=== PATIENT | male | born 2000 | race Caucasian/White ===

== ENCOUNTER 2020-12-22 10:01 | Emergency (ER) | payer OTHER ==
[~2020-12-22] VITALS: Ht 175.3 cm; Wt 64.7 kg
[2020-12-22] MEDS ORDERED: BUSP5TA PO (10:14)
[2020-12-22] MEDS ORDERED: TRAZ1TAB10 PO (10:14)
[2020-12-22] MEDS ORDERED: FLUO1TAB3 PO (10:15)
[2020-12-22] MEDS ORDERED: KETOROLAC 30 MG/ML 1ML VIAL IV ONE (11:20)
[2020-12-22] MEDS ORDERED: NS 1,000 ML IV ONE (11:20)
[2020-12-22] MEDS ORDERED: ONDANSETRON 4MG/2ML VIAL IV ONE (11:20)
[2020-12-22] MEDS ORDERED: diphenhydrAMINE 50MG/ML VIAL (J1200) IV ONE (11:20)
[2020-12-22 11:41] LABS: BASO % 0.5 % (0.0-1.0); EOS # 0.1 10^3/uL (0.0-0.5); EOS % 1.6 % (0.0-3.0); HEMATOCRIT 46.2 % (42.0-52.0); HEMOGLOBIN 15.5 g/dl (13.5-17.5); LYMPH # 1.2 10^3/uL (1.5-5.0); LYMPH % 19.3 % (24.0-44.0); MEAN CORPUSCULAR HEMOGLOBIN 30.4 pg (27.0-33.0); MEAN CORPUSCULAR HGB CONC 33.5 g/dl (32.0-36.5); MEAN CORPUSCULAR VOLUME 90.6 fl (80.0-96.0); MONO # 0.4 10^3/uL (0.0-0.8); NEUTROPHILS # 4.4 10^3/uL (1.5-8.5); NEUTROPHILS % 71.8 % (36.0-66.0); PLATELET COUNT, AUTOMATED 201 10^3/uL (150-450); WHITE BLOOD COUNT 6.2 10^3/uL (4.0-10.0)
--- NOTE | 2020-12-22 12:00 | REP ---
INDICATION: new onset headache. COMPARISON: None. TECHNIQUE: Helical scanning is acquired. 5 mm axial images were reformatted. Coronal MPR images were generated. FINDINGS: Bone window settings demonstrate an intact bony calvarium. There is no evidence of skull fracture or incidental bony calvarial lesion. The visualized paranasal sinuses appear clear. No intraorbital abnormality is seen. On soft tissue window setting images; the lateral, third, and fourth ventricles are normal in size and position. Medina-white differentiation pattern is normal above and below the tentorium. There are is no evidence of intracranial hemorrhage. No mass, edema, infarction, or midline shift is seen. No extra-axial fluid collection is appreciated. IMPRESSION: Negative noncontrast head CT. <Electronically signed by Syed Tejada > 12/22/20 [id number]
[2020-12-22 12:07] LABS: ERYTHROCYTE SEDIMENTATION RATE 2 mm/hr (0-15)
[2020-12-22 12:11] LABS: BLOOD UREA NITROGEN 14 MG/DL (7-18); CALCIUM LEVEL 9.6 MG/DL (8.5-10.1); CARBON DIOXIDE LEVEL 28 MEQ/L (21-32); CHLORIDE LEVEL 108 MEQ/L (98-107); CK-MB VALUE MASS < 1.0 NG/ML (<3.6); CPK CREATINE PHOSPHOKINASE 85 U/L (39-308); CREATININE FOR GFR 1.04 MG/DL (0.70-1.30); FREE T4 1.05 NG/DL (0.76-1.46); GLOMERULAR FILTRATION RATE > 60.0 (>60); GLUCOSE, FASTING 93 MG/DL (70-100); MAGNESIUM LEVEL 2.2 MG/DL (1.8-2.4); MB/CK RELATIVE INDEX 1.18 (< OR =4); POTASSIUM SERUM 4.4 MEQ/L (3.5-5.1); SODIUM LEVEL 141 MEQ/L (136-145); THYROID STIMULATING HORMONE 0.732 uIU/ML (0.358-3.740); TROPONIN I < 0.02 NG/ML (< 0.10)
[2020-12-22 13:00] VITALS: BP 113/78
--- NOTE | 2020-12-22 20:55 | ECGEPIP ---
[facility] - ED Test Date: 2020-12-22 Pat Name: JOSE CRYSTAL Department: Room: - Gender: Male Meat Trimmer: JEFFERY : 2000 Requested By: RUTH MATUTE PA-C Order Number: [id number] Reading MD: Laz Stewart Measurements Intervals [place] Rate: 69 P: 77 NE: 120 QRS: 68 QRSD: 92 T: 58 QT: 352 QTc: 377 Interpretive Statements Normal sinus rhythm INCOMPLETE RIGHT BUNDLE BRANCH BLOCK POOR R WAVE PROGRESSION BENIGN EARLY REPOLARIZATION NO PRIORS FOR COMPARISON Electronically Signed on 12-22-2020 20:55:25 EDT by Laz Stewart
== END 2020-12-22 13:10 | disposition home or self-care (01) ==
LOC: M ED 10:01
DX: R51.9 Headache, unspecified (principal); R07.89 Other chest pain; F33.9 Major depressive disorder, recurrent, unspecified; F41.9 Anxiety disorder, unspecified; D75.A Glucose-6-phosphate dehydrogenase (G6PD) deficiency without anemia; Z79.899 Other long term (current) drug therapy; Z88.8 Allergy status to other drugs, medicaments and biological substances
CPT/HCPCS: 70450; 80048; 82550; 82553; 83735; 84439; 84443; 84484; 85025; 85652; 93005; 96361; 96374; 96375; 99284; J1200; J1885; J2405

== ENCOUNTER 2020-12-23 23:34 | Emergency (ER) | payer OTHER ==
[~2020-12-23] VITALS: Ht 177.8 cm; Wt 65.6 kg
[~2020-12-23 23:34] MED LIST: BUSP5TA PO; FLUO1TAB3 PO; TRAZ1TAB10 PO
[2020-12-24 00:20] LABS: BASO % 0.6 % (0.0-1.0); EOS # 0.1 10^3/uL (0.0-0.5); EOS % 1.9 % (0.0-3.0); HEMATOCRIT 40.5 % (42.0-52.0); LYMPH # 1.9 10^3/uL (1.5-5.0); LYMPH % 26.3 % (24.0-44.0); MEAN CORPUSCULAR HEMOGLOBIN 30.2 pg (27.0-33.0); MEAN CORPUSCULAR HGB CONC 33.3 g/dl (32.0-36.5); MEAN CORPUSCULAR VOLUME 90.6 fl (80.0-96.0); MONO # 0.5 10^3/uL (0.0-0.8); MONO % 6.6 % (2.0-8.0); NEUTROPHILS # 4.6 10^3/uL (1.5-8.5); NEUTROPHILS % 64.2 % (36.0-66.0); PLATELET COUNT, AUTOMATED 172 10^3/uL (150-450); RED BLOOD COUNT 4.47 10^6/uL (4.30-6.10); WHITE BLOOD COUNT 7.2 10^3/uL (4.0-10.0)
[2020-12-24 00:23] LABS: HEMOGLOBIN 13.5 g/dl (13.5-17.5)
[2020-12-24] MEDS ORDERED: CHARCOAL ACTIVATED LIQUID 25 GM/120 ML BTL PO ONE (00:30)
[2020-12-24 00:48] LABS: AMPHETAMINES LEVEL URINE NEGATIVE (NEGATIVE); BARBITURATES URINE NEGATIVE (NEGATIVE); BENZODIAZEPINES URINE NEGATIVE (NEGATIVE); CANNABINOIDS URINE NEGATIVE (NEGATIVE); COCAINE METABOLITE URINE NEGATIVE (NEGATIVE); METHADONE URINE NEGATIVE (NEGATIVE); OPIATES URINE NEGATIVE (NEGATIVE); PHENCYCLIDINE URINE NEGATIVE (NEGATIVE)
[2020-12-24 01:00] LABS: ACETAMINOPHEN LEVEL < 2.0 UG/ML (10.0-30.0); ALBUMIN 4.4 GM/DL (3.2-5.2); ALT/SGPT 18 U/L (12-78); BILIRUBIN,DIRECT 0.2 MG/DL (0.0-0.2); BILIRUBIN,TOTAL 0.6 MG/DL (0.2-1.0); BLOOD UREA NITROGEN 16 MG/DL (7-18); CALCIUM LEVEL 8.9 MG/DL (8.5-10.1); CARBON DIOXIDE LEVEL 27 MEQ/L (21-32); CHLORIDE LEVEL 109 MEQ/L (98-107); CPK CREATINE PHOSPHOKINASE 97 U/L (39-308); CREATININE FOR GFR 0.99 MG/DL (0.70-1.30); ETHYL ALCOHOL (ETHANOL) < 0.003 % (0.000-0.010); GLOMERULAR FILTRATION RATE > 60.0 (>60); GLUCOSE, FASTING 89 MG/DL (70-100); POTASSIUM SERUM 3.8 MEQ/L (3.5-5.1); SALICYLATE LEVEL < 1.7 MG/DL (5.0-30.0); SODIUM LEVEL 141 MEQ/L (136-145); TOTAL PROTEIN 7.3 GM/DL (6.4-8.2)
[2020-12-24] MEDS ORDERED: NS 1,000 ML IV SCH (02:05)
[2020-12-24 16:40] LABS: RSV AMPLIFICATION NEGATIVE (NEGATIVE)
--- NOTE | 2020-12-24 20:47 | ECGEPIP ---
[facility] - ED Test Date: 2020-12-24 Pat Name: JOSE CRYSTAL Department: Room: - Gender: Male Door Technician: BRANDI : 2000 Requested By: ARPITA Mayfield Order Number: [id number] Reading MD: Ale Esposito Measurements Intervals [place] Rate: 64 P: 75 CT: 132 QRS: 51 QRSD: 90 T: 43 QT: 368 QTc: 379 Interpretive Statements Normal sinus rhythm with sinus arrhythmia similar 12/22/20 Electronically Signed on 12-24-2020 20:46:59 EDT by Ale Esposito
--- NOTE | 2020-12-24 20:53 | ECGEPIP ---
[facility] - ED Test Date: 2020-12-24 Pat Name: JOSE CRYSTAL Department: Room: - Gender: Male Preventive Maintenance Engineer: WARREN : 2000 Requested By: Laz Saunders Order Number: [id number] Reading MD: Ale Esposito Measurements Intervals [place] Rate: 54 P: 47 MI: 108 QRS: 68 QRSD: 94 T: 60 QT: 398 QTc: 377 Interpretive Statements Sinus bradycardia with short MI Electronically Signed on 12-24-2020 20:53:27 EDT by Ale Esposito
[2020-12-25 01:28] VITALS: BP 122/72
== END 2020-12-25 01:30 ==
LOC: M ED 23:34
DX: F33.9 Major depressive disorder, recurrent, unspecified (principal); R45.851 Suicidal ideations; T50.902A Poisoning by unspecified drugs, medicaments and biological substances, intentional self-harm, initial encounter; X58.XXXA Exposure to other specified factors, initial encounter; Y92.89 Other specified places as the place of occurrence of the external cause; F41.9 Anxiety disorder, unspecified; Z79.899 Other long term (current) drug therapy; Z88.8 Allergy status to other drugs, medicaments and biological substances